=== PATIENT | female | born 1985 | race Caucasian/White ===

== ENCOUNTER 2018-10-07 21:01 | Emergency (ER) | payer OTHER ==
[2018-10-07] MEDS ORDERED: METHYLERGONOVINE MALEATE 0.2 MG TAB PO ONE ×2 (22:12→22:23)
[2018-10-07 22:18] VITALS: BP 118/75; PULSE 95; RESP 18; TEMP 97.6; O2SAT 98
== END 2018-10-07 22:38 | disposition home or self-care (01) | DRG 779 ==
LOC: ED 21:01
DX: O03.6 Delayed or excessive hemorrhage following complete or unspecified spontaneous abortion (principal)
CPT/HCPCS: 99282; A9270-GY